=== PATIENT | female | born 1975 | race Caucasian/White ===

== ENCOUNTER 2022-08-21 08:00 | Emergency (ER) | payer OTHER ==
[~2022-08-21] VITALS: Ht 160 cm; Wt 55.3 kg
--- NOTE | 2022-08-21 08:13 | NUR ---
C/O LEFT PINKY NEEDLE STICK WHILE DISPOSING OF USED NEEDLE. NO OTHER MEDICAL COMPLAINTS. VSS. AWAITING MD ORDERS.
--- NOTE | 2022-08-21 08:36 | NUR ---
Patient discharged back to work in stable condition. Written and verbal after care instructions given. Patient verbalizes understanding of instruction.
[2022-08-21 11:01] VITALS: BP 134/65
== END 2022-08-21 11:01 | disposition home or self-care (01) ==
LOC: ER 08:05
DX: S61.237A Puncture wound without foreign body of left little finger without damage to nail, initial encounter (principal); Z88.8 Allergy status to other drugs, medicaments and biological substances; Z60.2 Problems related to living alone; W46.1XXA Contact with contaminated hypodermic needle, initial encounter; Y93.89 Activity, other specified; Y92.89 Other specified places as the place of occurrence of the external cause; Y99.8 Other external cause status
CPT/HCPCS: 86706; 86803; 87806

== ENCOUNTER 2023-11-11 15:48 | Emergency (ER) | payer OTHER ==
[~2023-11-11] VITALS: Ht 160 cm; Wt 56.7 kg
[2023-11-11 15:54] VITALS: O2SAT 100
[2023-11-11 16:03] VITALS: BP 132/77; TEMP 98.7; O2SAT 100
== END 2023-11-11 17:45 | disposition home or self-care (01) ==
LOC: ER 15:48
DX: S92.534A Nondisplaced fracture of distal phalanx of right lesser toe(s), initial encounter for closed fracture (principal); Z88.8 Allergy status to other drugs, medicaments and biological substances; Z60.2 Problems related to living alone; W18.30XA Fall on same level, unspecified, initial encounter; Y93.89 Activity, other specified; Y92.89 Other specified places as the place of occurrence of the external cause; Y99.8 Other external cause status
CPT/HCPCS: 73660-TC